=== PATIENT | female | born 1950 | race Two or more races ===

== ENCOUNTER 2017-05-11 00:13 | Emergency (ER) | payer OTHER ==
[~2017-05-11] VITALS: Ht 157.5 cm; Wt 62.6 kg
[2017-05-11] MEDS ORDERED: NKM (00:24)
[2017-05-11 00:52] VITALS: BP 195/104
[2017-05-11 00:58] LABS: KETONES,URINE 4+ (NEGATIVE); LEUKOCYTE ESTERASE ,URINE 3+ (NEGATIVE); NITRITE,URINE NEGATIVE (NEGATIVE); PH,URINE 6 (4.5-8.0); PROTEIN,URINE 3+ (NEGATIVE); UROBILINOGEN,URINE 1 MG/DL (0.0-1.0)
[2017-05-11 00:59] LABS: APPEARANCE,URINE SLIGHTLY CLOUDY
[2017-05-11 01:09] LABS: BACTERIA,URINE FEW /HPF; HYALINE CASTS, URINE 0-2 /LPF; MUCUS,URINE MODERATE /LPF (NONE/OCC); SQUAMOUS EPITHELIAL CELL,UR MANY /LPF (NONE/OCC)
[2017-05-11 01:10] LABS: ICTOTEST NEGATIVE
[2017-05-11] MEDS ORDERED: cefTRIAXone 1 GM in NS 55 ML IVPB ONE (01:15)
[2017-05-11 01:20] LABS: BASOPHILS % (AUTO) 0.3 % (0.0-2.0); LYMPHOCYTES % (AUTO) 16.3 % (20.0-45.0); MEAN CORPUSCULAR HGB CONC 34.5 G/DL (32.0-36.0); MEAN CORPUSCULAR VOLUME 93 FL (80-99); MEAN PLATELET VOLUME 8.8 FL (6.5-10.1); MONOCYTES % (AUTO) 8.2 % (1.0-10.0); NEUTROPHILS % (AUTO) 75.2 % (45.0-75.0); PLATELET COUNT 271 K/UL (150-450); RED BLOOD COUNT 4.72 M/UL (4.20-5.40); WHITE BLOOD COUNT 13.3 K/UL (4.8-10.8)
[2017-05-11 01:44] LABS: ALANINE AMINOTRANSFERASE 11 U/L (3-33); ALBUMIN/GLOBULIN RATIO 1.3 (1.0-2.7); ANION GAP 18 (5-15); ASPARTATE AMINO TRANSFERASE 17 U/L (5-40); CALCIUM 10.7 mg/dL (8.6-10.2); CARBON DIOXIDE 20 mEQ/L (20-30); CHLORIDE 98 mEQ/L (98-107); CREATININE 0.8 mg/dL (0.5-0.9); GLOMERULAR FILTRATION RATE > 60 mL/min (>60); HEMOLYSIS 1; LIPASE 19 U/L (< 60); POTASSIUM 2.9 mEQ/L (3.4-4.9); SODIUM 136 mEQ/L (135-145); TOTAL PROTEIN 7.2 g/dL (6.6-8.7)
[2017-05-11] MEDS ORDERED: HYZAAR 50-12.51 EACH ORAL (02:56)
[2017-05-11] MEDS ORDERED: MACROBID100 MG ORAL (02:56)
[2017-05-11] MEDS ORDERED: ZOFRAN4 MG ORAL (02:56)
--- NOTE | 2017-05-11 02:57 | Emergency Room Report ---
History of Present Illness General Chief Complaint: Abdominal Pain Source: Patient Present Illness HPI This is a 66-year-old female who with no past medical history. She said she has a history of high blood pressure was she's vomiting. Patient presents with chief complaint abdominal pain and vomiting for last for 5 days. Unable to keep anything down. 2 days ago she went to the ER at [place]. Said that blood work was normal. Was discharged home. She was still vomiting so she went to [facility]. She was rest or but was not seen for over 2 hours so she came here. Denies any fever or chills. Denies any diarrhea. Allergies: Coded Allergies: No Known Allergies (Unverified , 05/11/17) Patient History Past Medical History: see triage record, old chart reviewed Past Surgical History: other Pertinent Family History: none Social History: Denies: smoking Now: No Immunizations: other Reviewed Nursing Documentation: PMH: Agreed, PSxH: Agreed Nursing Documentation-PMH Hx Hypertension: Yes Review of Systems Eye: Denies: blurred vision, eye pain ENT: Denies: ear pain, nose congestion, throat swelling Respiratory: Denies: cough, shortness of breath Cardiovascular: Denies: chest pain, palpitations Gastrointestinal: Reports: abdominal pain, nausea, vomiting, Denies: diarrhea Musculoskeletal: Denies: back pain, joint pain Skin: Denies: rash Neurological: Denies: headache, numbness Endocrine: Denies: increased thirst, increased urine Hematologic/Lymphatic: Denies: easy bruising All Other Systems: negative except mentioned in HPI Physical Exam Vital Signs Date Time Temp Pulse Resp B/P Pulse Ox O2 Delivery O2 Flow Rate FiO2 05/11/17 00:18 98.6 103 18 195/104 97 Room Air vitals with hypertension Sp02 EP Interpretation: reviewed, normal General Appearance: well appearing, no apparent distress, alert Head: normocephalic, atraumatic Eyes: bilateral eye EOMI, bilateral eye PERRL ENT: hearing grossly normal, normal pharynx Neck: full range of motion, supple, no meningismus Respiratory: chest non-tender, lungs clear, normal breath sounds Cardiovascular #1: regular rate, rhythm, no murmur Gastrointestinal: no mass, no organomegaly, no bruit, non-distended, abnormal bowel sounds - Hypoactive, tenderness - Mild. Diffuse. Musculoskeletal: back normal, gait/station normal, normal range of motion Psychiatric: mood/affect normal Skin: warm/dry Medical Decision Making Diagnostic Impression: Primary Impression: Abdominal pain of unknown etiology Additional Impressions: Hypertension Qualified Codes: I10 - Essential (primary) hypertension Vomiting Qualified Codes: R11.2 - Nausea with vomiting, unspecified Adrenal mass, left Adrenal mass, right UTI (urinary tract infection) Qualified Codes: N30.00 - Acute cystitis without hematuria ER Course Patient present with abdominal pain with vomiting and diarrhea. No evidence of obstruction. No evidence of acute abdomen. She felt better now. Tolerating by mouth. We'll discharge home with antibiotics and blood pressure medication. Lab Results Impression labs unremarkable CT/MRI/US Diagnostic Results CT/MRI/US Diagnostic Results : Imaging Test Ordered: CT abdomen and pelvis Impression read by radiologist. Adrenal mass. Last Vital Signs Date Time Temp Pulse Resp B/P Pulse Ox O2 Delivery O2 Flow Rate FiO2 05/11/17 02:33 196/103 05/11/17 00:52 98.6 18 97 Room Air 05/11/17 00:18 103 Status: improved Disposition: HOME, SELF-CARE Condition: Stable Scripts Losartan/Hydrochlorothiazide 50-12.5 Tablet* (HYZAAR 50-12.5 TABLET*) 1 Each Tablet 1 TAB ORAL DAILY, #30 TAB Prov: JIGAR ESAPRZA M.D. 05/11/17 Ondansetron (Zofran) 4 Mg Tablet 4 MG ORAL Q6H Y for Nausea & Vomiting, #10 TAB 0 Refills Prov: JIGAR ESPARZA M.D. 05/11/17 Nitrofurantoin Monohyd/M-Cryst (Nitrofurantoin [place]-Mcr 100 mg) 100 Mg Capsule 100 MG ORAL Q12H, #14 CAP Prov: JIGAR ESPARZA M.D. 05/11/17 Referrals: [facility],REFERRING (PCP) Additional Instructions: Followup with your DrBrisa in 7 days. Return for worsening symptoms. JIGAR ESPARZA M.D. May 11, 2017 02:57
[2017-05-11 03:12] VITALS: BP 170/83
--- NOTE | 2017-05-11 12:15 | Diagnostic Imaging Report ---
Indication: Abdominal pain Technique: IV administration nonionic contrast. No oral contrast, per emergency room physician request. Spiral acquisitions obtained through the abdomen and pelvis Multiplanar reconstructions were generated. Total dose length product 791 mGycm. CTDIvol(s) 17 mGy. Radiation dose was minimized using automated exposure control Comparison: None Findings: The appendix is not clearly demonstrated, but there are no findings to suggest acute appendicitis. There is colonic diverticulosis. No evidence of diverticulitis. No small bowel distention. No free or loculated intraperitoneal air or fluid is evident. Distal, duodenum are unremarkable surgical clips are seen within the gastric wall. There is a small sliding-type hiatal hernia. The duodenum is unremarkable. The liver is minimally hypoattenuating, consistent with mild fatty change. It demonstrates several subcentimeter low-attenuation lesions which are too small to characterize. The gallbladder, bile ducts, are unremarkable. The spleen demonstrates a 19 mm cyst in the periphery. There is a large left adrenal mass which measures 36 mm, demonstrates low-attenuation consistent with a benign adenoma. There are 2 right adrenal masses, the larger measuring 28 mm, smaller measuring 15 mm. These demonstrate somewhat low attenuation, but not low enough to be diagnostic for adenomas and therefore considered nonspecific. The right kidney demonstrates a 2 cm cyst. The left kidney demonstrates and 8mm fat attenuation mass consistent with a benign angiomyolipoma. The left kidney demonstrates subcentimeter low-attenuation lesions which are too small to characterize, most likely benign simple cortical cysts. The uterus is not demonstrated, presumed surgically absent. No pelvic mass or adenopathy. No retroperitoneal mass or adenopathy. The included lung bases are clear. There is a superior endplate compression fracture deformity of the L2 vertebral body, age indeterminate. There are mild degenerative spondylosis changes. Impression: No acute abnormality Large left adrenal mass, low-attenuation consistent with a benign adenoma. 2 right adrenal masses, demonstrating nonspecific in attenuation, likely but not definitively benign adenomas. Further evaluation with adrenal protocol MRI should be considered if clinically indicated Equivocal slight hepatic fatty change Diverticulosis. No evidence of diverticulitis Right renal cysts. Left renal angiomyolipoma Subcentimeter low-attenuation left renal lesions, too small to characterize, most likely benign simple cortical cysts. 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 L2 vertebral body compression fracture, age indeterminate. Consider MRI for better characterization if this is clinically relevant. This was not described on the preliminary report. This finding was reported to Dr. Esqueda in the emergency room at the time of interpretation The CT scanner at [facility] is accredited by the [employer] and the scans are performed using protocols designed to limit radiation exposure to as low as reasonably achievable to attain images of sufficient resolution adequate for diagnostic evaluation.
== END 2017-05-11 03:12 | disposition home or self-care (01) ==
LOC: EMR 02:14
DX: R10.9 Unspecified abdominal pain (principal); I10 Essential (primary) hypertension; R11.2 Nausea with vomiting, unspecified; E27.9 Disorder of adrenal gland, unspecified; N30.00 Acute cystitis without hematuria; K57.90 Diverticulosis of intestine, part unspecified, without perforation or abscess without bleeding; N28.1 Cyst of kidney, acquired; Z90.710 Acquired absence of both cervix and uterus; M47.9 Spondylosis, unspecified
CPT/HCPCS: 36415; 74177; 80053; 80300; 81003; 83690; 85025; 87086; 96374; 96375; 99284; J0360; J0696; J2405; Q9967

== ENCOUNTER 2017-09-24 15:12 | Emergency (ER) | payer OTHER, MEDICAID ==
[~2017-09-24] VITALS: Ht 162.6 cm; Wt 56.2 kg
[~2017-09-24 15:12] MED LIST: HYZAAR 50-12.51 EACH ORAL; MACROBID100 MG ORAL; NKM; ZOFRAN4 MG ORAL
[2017-09-24 15:35] VITALS: BP 232/88
[2017-09-24 15:58] LABS: MEAN CORPUSCULAR HEMOGLOBIN 30.9 PG (27.0-31.0); MEAN CORPUSCULAR HGB CONC 33.5 G/DL (32.0-36.0); MEAN CORPUSCULAR VOLUME 92 FL (80-99); PLATELET COUNT 300 K/UL (150-450); WHITE BLOOD COUNT 18.5 K/UL (4.8-10.8)
[2017-09-24 16:08] LABS: BASOPHILS % (AUTO) 0.3 % (0.0-2.0); LYMPHOCYTES % (AUTO) 14.5 % (20.0-45.0); NEUTROPHILS % (AUTO) 79.2 % (45.0-75.0)
[2017-09-24 16:15] LABS: ANION GAP 15 mmol/L (5-15); CALCIUM 11.4 MG/DL (8.5-10.1); CARBON DIOXIDE 24 MMOL/L (21-32); CHLORIDE 96 MMOL/L (98-107); CREATININE 1.4 MG/DL (0.55-1.30); GLOMERULAR FILTRATION RATE 37.5 mL/min (>60); POTASSIUM 3.1 MMOL/L (3.5-5.1); SODIUM 135 MMOL/L (136-145)
[2017-09-24 16:28] LABS: APPEARANCE,URINE CLOUDY; KETONES,URINE 3+ (NEGATIVE); LEUKOCYTE ESTERASE ,URINE 3+ (NEGATIVE); NITRITE,URINE NEGATIVE (NEGATIVE); PH,URINE 5 (4.5-8.0); PROTEIN,URINE 3+ (NEGATIVE); UROBILINOGEN,URINE 1 MG/DL (0.0-1.0)
[2017-09-24 16:30] LABS: ALANINE AMINOTRANSFERASE 18 U/L (12-78); ALBUMIN/GLOBULIN RATIO 1.2 (1.0-2.7); ASPARTATE AMINO TRANSFERASE 24 U/L (15-37); CKMB 5.9 NG/ML (0.0-3.6); TOTAL PROTEIN 8.7 G/DL (6.4-8.2)
[2017-09-24] MEDS ORDERED: Ampicillin/Sulbactam Sod 3 GM in NS 110 ML IVPB ONE (16:30)
[2017-09-24 16:47] LABS: REFLEX LACTIC ACID YES OR NO YES
[2017-09-24 16:48] LABS: ICTOTEST POSITIVE
[2017-09-24] MEDS ORDERED: Unasyn 3gm Inj ONE (16:53)
[2017-09-24 16:57] LABS: BACTERIA,URINE MANY /HPF; HYALINE CASTS, URINE TNTC /LPF; SQUAMOUS EPITHELIAL CELL,UR MODERATE /LPF (NONE/OCC)
--- NOTE | 2017-09-24 17:01 | Diagnostic Imaging Report ---
Indication: SOB Technique: One view of the chest Comparison: none Findings: No acute infiltrates, effusions, or congestion. Tortuous calcified aorta. Normal heart size. Upper mediastinum unremarkable. Impression: No acute process.
[2017-09-24 18:00] VITALS: BP 214/87
[2017-09-24] MEDS ORDERED: Enalaprilat 2.5mg/2ml Inj IV ONE (19:00)
[2017-09-24 19:05] VITALS: BP 219/90
[2017-09-24] MEDS ORDERED: CITALOPRAM HBR40 M1 ORAL (19:40)
[2017-09-24 21:15] VITALS: BP 142/81
[2017-09-24 21:30] VITALS: BP 139/80
--- NOTE | 2017-09-24 21:34 | Emergency Room Report ---
History of Present Illness General Chief Complaint: Chest Pain Source: Patient Present Illness HPI Patient is a 67-year-old female presented after increased chest pain and difficulty breathing. Patient had generalized bodyaches. She reported having increased nonproductive cough. The patient states that she been having gradual onset of symptoms with associated headache. The patient reported having symptoms intermittently for the past 3 days. She reports having prior history of hypertension. Allergies: Coded Allergies: No Known Allergies (Unverified , 05/11/17) Patient History Past Medical History: see triage record Reviewed Nursing Documentation: PMH: Agreed, PSxH: Agreed Nursing Documentation-PMH Past Medical History: No History, Except For Hx Hypertension: Yes History Of Psychiatric Problem: Yes - anxiety, depression and panic attack Review of Systems All Other Systems: negative except mentioned in HPI Physical Exam Vital Signs Date Time Temp Pulse Resp B/P (MAP) Pulse Ox O2 Delivery O2 Flow Rate FiO2 09/24/17 15:15 98.4 78 22 100 Room Air 09/24/17 15:35 232/88 09/24/17 15:35 100 Sp02 EP Interpretation: reviewed, normal General Appearance: normal inspection, well appearing, no apparent distress, alert, GCS 15 Head: atraumatic ENT: normal ENT inspection, hearing grossly normal, normal voice Neck: normal inspection, full range of motion, supple, no bony tend Respiratory: normal inspection, lungs clear, no respiratory distress, no retraction Cardiovascular #1: regular rate, rhythm, no edema Gastrointestinal: normal inspection, normal bowel sounds, non tender, soft, no guarding, no hernia Genitourinary: no CVA tenderness Musculoskeletal: normal inspection, back normal, normal range of motion Neurologic: normal inspection, alert, responsive, speech normal Psychiatric: normal inspection, judgement/insight normal, mood/affect normal Skin: normal inspection, normal color, no rash Medical Decision Making Diagnostic Impression: Primary Impression: Chest pain Additional Impressions: Uncontrolled hypertension Urinary tract infection ER Course Patient presented for chest pain. Differential diagnosis included but was not limited to acute coronary syndrome, pulmonary embolism, pneumonia, aortic dissection, shingles, pneumothorax, aortic dissection, esophageal rupture, pericarditis. Because of complexity of patient's case laboratory testing and imaging studies were ordered.The patient was noted to be somewhat hypertensive. The patient was given IV Vasotec as well as clonidine with improvement in her blood pressure. The patient was discussed with Dr. Wall for transfer to [facility] Labs Test 09/24/17 15:29 09/24/17 15:55 09/24/17 16:00 White Blood Count 18.5 K/UL (4.8-10.8) Red Blood Count 4.90 M/UL (4.20-5.40) Hemoglobin 15.2 G/DL (12.0-16.0) Hematocrit 45.3 % (37.0-47.0) Mean Corpuscular Volume 92 FL (80-99) Mean Corpuscular Hemoglobin 30.9 PG (27.0-31.0) Mean Corpuscular Hemoglobin Concent 33.5 G/DL (32.0-36.0) Red Cell Distribution Width 11.0 % (11.6-14.8) Platelet Count 300 K/UL (150-450) Mean Platelet Volume 9.0 FL (6.5-10.1) Neutrophils (%) (Auto) 79.2 % (45.0-75.0) Lymphocytes (%) (Auto) 14.5 % (20.0-45.0) Monocytes (%) (Auto) 6.0 % (1.0-10.0) Eosinophils (%) (Auto) 0.0 % (0.0-3.0) Basophils (%) (Auto) 0.3 % (0.0-2.0) Prothrombin Time 10.0 SEC (9.30-11.50) Prothromb Time International Ratio 1.0 (0.9-1.1) Activated Partial Thromboplast Time 30 SEC (23-33) Sodium Level 135 MMOL/L (136-145) Potassium Level 3.1 MMOL/L (3.5-5.1) Chloride Level 96 MMOL/L (98-107) Carbon Dioxide Level 24 MMOL/L (21-32) Anion Gap 15 mmol/L (5-15) Blood Urea Nitrogen 17 mg/dL (7-18) Creatinine 1.4 MG/DL (0.55-1.30) Estimat Glomerular Filtration Rate 37.5 mL/min (>60) Glucose Level 134 MG/DL (74-106) Calcium Level 11.4 MG/DL (8.5-10.1) Total Bilirubin 0.8 MG/DL (0.2-1.0) Aspartate Amino Transf (AST/SGOT) 24 U/L (15-37) Alanine Aminotransferase (ALT/SGPT) 18 U/L (12-78) Alkaline Phosphatase 132 U/L (46-116) Total Creatine Kinase 328 U/L (26-308) Creatine Kinase MB 5.9 NG/ML (0.0-3.6) Creatine Kinase MB Relative Index 1.7 Troponin I 0.016 ng/mL (0.000-0.056) Total Protein 8.7 G/DL (6.4-8.2) Albumin 4.7 G/DL (3.4-5.0) Globulin 4.0 g/dL Albumin/Globulin Ratio 1.2 (1.0-2.7) Lactic Acid Level 2.00 mmol/L (0.66-2.22) Urine Color Brown Urine Appearance Cloudy Urine pH 5 (4.5-8.0) Urine Specific [place] 1.020 (1.005-1.035) Urine Protein 3+ (NEGATIVE) Urine Glucose (UA) 1+ (NEGATIVE) Urine Ketones 3+ (NEGATIVE) Urine Occult Blood 4+ (NEGATIVE) Urine Nitrite Negative (NEGATIVE) Urine Bilirubin 1+ (NEGATIVE) Urine Ictotest Positive Urine Urobilinogen 1 MG/DL (0.0-1.0) Urine Leukocyte Esterase 3+ (NEGATIVE) Urine RBC 10-15 /HPF (0 - 2) Urine WBC 5-10 /HPF (0 - 2) Urine Squamous Epithelial Cells Moderate /LPF (NONE/OCC) Urine Bacteria Many /HPF (NONE) Urine Hyaline Casts Tntc /LPF (NONE) EKG Diagnostic Results Rate: normal Rhythm: NSR ST Segments: no acute changes Last Vital Signs Date Time Temp Pulse Resp B/P (MAP) Pulse Ox O2 Delivery O2 Flow Rate FiO2 09/24/17 19:45 219/90 09/24/17 19:05 89 20 99 Room Air 09/24/17 18:00 98.6 100 Status: improved Disposition: XFER S[facility]M HOSP Condition: Stable Referrals: [facility],REFERRING (PCP) Abdias Zamudio Sep 24, 2017 21:34
--- NOTE | 2017-09-25 11:26 | Cardiology Report ---
APPROVED REPORT EKG Measurement Heart [id number] Normal sinus rhythm with sinus arrhythmia Normal ECG
== END 2017-09-24 21:30 | disposition short-term general hospital (02) ==
LOC: EMR 17:30
DX: R07.9 Chest pain, unspecified (principal); I10 Essential (primary) hypertension; N39.0 Urinary tract infection, site not specified; F41.9 Anxiety disorder, unspecified; F32.9 Major depressive disorder, single episode, unspecified
CPT/HCPCS: 36415; 71010; 80053; 81003; 82550; 82553; 83605; 84484; 85025; 85610; 85730; 87040; 87086; 93005; 96361; 96365; 96375; 99285; J0295